=== PATIENT | female | born 1970 | race Two or more races ===

== ENCOUNTER 2017-05-03 14:46 | Emergency (ER) | payer MEDICAID, OTHER ==
[~2017-05-03] VITALS: Ht 165.1 cm; Wt 86.2 kg
[2017-05-03 15:00] VITALS: BP 116/64
[2017-05-03] MEDS ORDERED: diphenhdrAMINE HCL 50 MG/1 ML VL IM ONE (16:00)
== END 2017-05-03 16:03 | disposition home or self-care (01) ==
LOC: ER 14:46
DX: L30.9 Dermatitis, unspecified (principal)
CPT/HCPCS: 96372; 99283; J1200

== ENCOUNTER 2019-03-28 10:01 | Emergency (ER) | payer OTHER ==
[~2019-03-28] VITALS: Ht 165.1 cm; Wt 77.1 kg
[2019-03-28 10:09] VITALS: BP 108/69
== END 2019-03-28 11:26 | disposition home or self-care (01) ==
LOC: ER 10:01
DX: S01.81XA Laceration without foreign body of other part of head, initial encounter (principal); B00.9 Herpesviral infection, unspecified; W18.09XA Striking against other object with subsequent fall, initial encounter; Y93.89 Activity, other specified; Y92.89 Other specified places as the place of occurrence of the external cause; Y99.8 Other external cause status
CPT/HCPCS: 12011